=== PATIENT | male | born 1985 | race Hispanic/Latino ===

== ENCOUNTER 2019-05-28 18:31 | Emergency (ER) | payer OTHER | END 2019-05-28 19:37 | disposition home or self-care (01) | LOC: EDH 18:31 | DX: S93.492A Sprain of other ligament of left ankle, initial encounter (principal); X58.XXXA Exposure to other specified factors, initial encounter; Y93.89 Activity, other specified; Y92.89 Other specified places as the place of occurrence of the external cause; Y99.8 Other external cause status | CPT/HCPCS: 73590; 73610 ==

== ENCOUNTER 2019-08-20 21:15 | Emergency (ER) | payer OTHER ==
[2019-08-20] MEDS ORDERED: IBUPROFEN 600 MG TABLET ONE (21:50)
== END 2019-08-20 22:12 | disposition home or self-care (01) ==
LOC: EDH 21:15
DX: S92.351A Displaced fracture of fifth metatarsal bone, right foot, initial encounter for closed fracture (principal); W23.0XXA Caught, crushed, jammed, or pinched between moving objects, initial encounter; Y93.89 Activity, other specified; Y92.89 Other specified places as the place of occurrence of the external cause; Y99.8 Other external cause status
CPT/HCPCS: 73610; 73630